=== PATIENT | female | born 1995 | race Caucasian/White ===

== ENCOUNTER 2024-12-26 23:15 | Emergency (ER) | payer OTHER ==
[~2024-12-26] VITALS: Ht 157.5 cm; Wt 68.0 kg
[2024-12-27 00:42] VITALS: BP 135/85; TEMP 98.5
[2024-12-27] MEDS ORDERED: AMOX-430 PO (00:42)
[2024-12-27] MEDS ORDERED: AMOX/CLAVULANATE 875 MG TABLET ONE (00:49)
[2024-12-27 00:54] VITALS: O2SAT 98
[2024-12-27] MEDS: AMOX/CLAVULANATE 875 MG TABLET PO ONE (00:56)
== END 2024-12-27 00:56 | disposition home or self-care (01) ==
LOC: ER 23:27
DX: S61.431A Puncture wound without foreign body of right hand, initial encounter (principal); Z88.6 Allergy status to analgesic agent; W55.01XA Bitten by cat, initial encounter; Y93.89 Activity, other specified; Y92.89 Other specified places as the place of occurrence of the external cause; Y99.8 Other external cause status